=== PATIENT | male | born 1965 | race Caucasian/White ===

== ENCOUNTER 2021-04-07 12:14 | Emergency (ER) | payer SELFPAY ==
[2021-04-07 15:01] LABS: COVID AG,FIA SOURCE NASOPHARYNGEAL
== END 2021-04-07 15:11 ==
LOC: EMS 12:18
DX: I46.9 Cardiac arrest, cause unspecified (principal); F17.210 Nicotine dependence, cigarettes, uncomplicated; Z20.822 Contact with and (suspected) exposure to COVID-19
CPT/HCPCS: 31500; 87426; 92950; 99285; U0003; C9803; Z7502